=== PATIENT | male | born 1960 ===

== ENCOUNTER 2017-01-26 09:26 | Emergency (ER) | payer OTHER ==
[2017-01-26 09:43] VITALS: TEMP 97.8; O2SAT 98
--- NOTE | 2017-01-26 10:30 | C.PDOC ---
History Of Present Illness 56 year old male presents to the ED for evaluation s/p fall sustained 2 days ago. Patient complains of left sided chest wall contusion, notes that he fell onto his left side. Patient denies any other associated symptoms at this time. Hisory obtained via metal caster. VIA TRANS SP FALL 2 DAYS AGO CO L SIDE CHEST WALL CONTUSION. FELL ONTO L SIDE. NO OTHER ASSOC SX EXAM MILD DIST NONTOXIC HEENT ATRAUM CHEST WALL +GEN TEND L LAT LOWER CHEST WALL NO CREPITUS +BRUISE X 1 CTA B/L NO W/R/R ABD NEG NEURO INTACT - HPI Time Seen by Provider: 01/26/17 09:51 Chief Complaint (Nursing): Rib Injury History Per: Patient History/Exam Limitations: no limitations Onset/Duration Of Symptoms: Days (2) Location Of Injury: Left: Chest Additional History Per: Patient Past Medical History Reviewed: Historical Data, Nursing Documentation, Vital Signs Vital Signs: Last Vital Signs Temp 97.8 F 01/26/17 09:41 Pulse 65 01/26/17 11:04 Resp 20 01/26/17 11:04 BP 122/72 01/26/17 11:04 Pulse Ox 98 01/26/17 11:04 - Medical History PMH: No Chronic Diseases Surgical History: No Surg Hx Family History: States: Unknown Family Hx - Social History Hx Alcohol Use: Yes Hx Substance Use: No - Immunization History Hx Tetanus Toxoid Vaccination: No Hx Influenza Vaccination: No Hx Pneumococcal Vaccination: No Review Of Systems Skin: Positive for: Other (left side chest wall contusion ) Physical Exam - Physical Exam Appears: Non-toxic, Other (in mild distress ) Skin: Normal Color, Warm, Dry, Other (bruise x1 to left lateral lower chest wall ) Head: Atraumatic, Normacephalic Eye(s): bilateral: Normal Inspection Ear(s): Bilateral: Normal Nose: Normal, No Discharge Oral Mucosa: Moist Throat: Normal, No Erythema, No Exudate Neck: Supple Chest: Tenderness (generalized, to left lateral lower chest wall ), No Other ( crepitus ) Cardiovascular: Rhythm Regular, No Murmur Respiratory: Normal Breath Sounds, No Rales, No Rhonchi, No Wheezing Gastrointestinal/Abdominal: Soft, No Tenderness, No Guarding, No Rebound Extremity: Normal ROM, Capillary Refill (less than 2 seconds ) Neurological/Psych: Oriented x3, Normal Speech, Normal Cognition Gait: Steady ED Course And Treatment O2 Sat by Pulse Oximetry: 98 (on RA) Pulse Ox Interpretation: Normal - Radiology CXR: Interpreted by Me CXR Interpretation: Yes: No Acute Disease - Other Rad L RIBS X-Ray: Interpreted by Me (NEG) Progress Note: ribs and chest XR ordered and reviewed. Lidoderm TD, Percocet PO , Toradol IM, and Zofran PO administered. Disposition Counseled Patient/Family Regarding: Studies Performed, Diagnosis, Need For Followup, Rx Given - Disposition Referrals: [facility] [Outside] [facility] [Outside] Disposition: HOME/ ROUTINE Disposition Time: 10:35 Condition: IMPROVED Prescriptions: Acetaminophen/Codeine [Tylenol/Codeine 300 MG/30 MG] 2 tab PO Q6H #20 tab Ibuprofen [Motrin] 600 mg PO Q6 #30 tab Lidocaine 5% [Lidoderm] 1 ea TD PRN PRN #10 patch PRN Reason: Pain, Moderate (4-7) Instructions: Rib Contusion (ED) Forms: Gen Discharge Inst Syriac, Work/School/Gym Excuse Print Language: DOMINICAN - Clinical Impression Clinical Impression: Rib contusion - Scribe Statement The provider has reviewed the documentation as recorded by the Scribe (Kiley Robert) Provider Attestation: All medical record entries made by the Scribe were at my direction and personally dictated by me. I have reviewed the chart and agree that the record accurately reflects my personal performance of the history, physical exam, medical decision making, and the department course for this patient. I have also personally directed, reviewed, and agree with the discharge instructions and disposition.
[2017-01-26] MEDS ORDERED: Lidocaine 5% Patch TD STA (10:36)
[2017-01-26] MEDS ORDERED: Oxycodone/Acetaminophen 5/325 mg Tab PO STA (10:37)
[2017-01-26] MEDS ORDERED: Oxycodone/Acetaminophen 5/325 mg Tab ONE (10:42)
[2017-01-26] MEDS ORDERED: Lidocaine 5% Patch TD ONE (10:42)
[2017-01-26 11:05] VITALS: BP 122/72; PULSE 65; RESP 20
--- NOTE | 2017-01-26 13:40 | RAD ---
PROCEDURE: Radiographs of the Chest and Left Ribs. HISTORY: TRAUMA COMPARISON: None available. TECHNIQUE: Frontal radiograph of the chest and multiple oblique radiographs of the left ribs were obtained. FINDINGS: LEFT RIBS: No fracture or focal lesion visualized. LUNGS: Clear. PLEURA: No pneumothorax or pleural fluid. CARDIOVASCULAR: Normal sized heart. No pulmonary vascular congestion. OTHER FINDINGS: Metallic fragments in the region of the right clavicle IMPRESSION: Unremarkable radiographs of the chest and left ribs. No left rib fracture.
== END 2017-01-26 11:08 | disposition home or self-care (01) ==
LOC: C.ER 09:26
DX: S20.212A Contusion of left front wall of thorax, initial encounter (principal); W18.30XA Fall on same level, unspecified, initial encounter
CPT/HCPCS: 71101; 96372; 99284; J1885